=== PATIENT | male | born 1945 | race Caucasian/White ===

== ENCOUNTER 2019-03-01 06:23 | Day surgery (SDC) | payer OTHER, BC ==
[~2019-03-01] VITALS: Ht 157.5 cm; Wt 68.5 kg
[2019-03-01] MEDS ORDERED: ASPI-1718 PO (07:45)
[2019-03-01] MEDS ORDERED: NITR0.4T1 SL (07:45)
[2019-03-01] MEDS ORDERED: LOSA25TA43 PO (07:45)
[2019-03-01] MEDS ORDERED: TOLT2TAB7 PO (07:45)
[2019-03-01] MEDS ORDERED: PANT40EC PO (07:45)
[2019-03-01] MEDS ORDERED: ATRO1TAB PO (07:45)
[2019-03-01] MEDS ORDERED: ATOR40TA PO (07:45)
[2019-03-01] MEDS ORDERED: LEVO5TAB12 PO (07:45)
[2019-03-01] MEDS ORDERED: [UNRECOGNIZED DRUG - CODE] NS (07:45)
[2019-03-01] MEDS ORDERED: CLOB0.0525 TP (07:45)
[2019-03-01] MEDS ORDERED: CITA10TA11 PO (07:45)
[2019-03-01] MEDS ORDERED: fentaNYL 0.05 MG/ML VIAL ONE (08:31)
[2019-03-01] MEDS ORDERED: MIDAZOLAM 2 MG/2 ML VIAL ONE (08:32)
[2019-03-01] MEDS ORDERED: LIDOCAINE 2% 100 MG/5 ML UJET TP ONE (08:32)
== END 2019-03-01 10:00 | disposition home or self-care (01) ==
LOC: MDS 06:23 → MMU 06:53 → MDS 10:00
PROVIDERS: ATTEND Internal Medicine Gastroenterology
DX: K31.7 Polyp of stomach and duodenum (principal); K31.89 Other diseases of stomach and duodenum; K21.9 Gastro-esophageal reflux disease without esophagitis; I10 Essential (primary) hypertension; M19.90 Unspecified osteoarthritis, unspecified site; E66.3 Overweight; Z68.27 Body mass index [BMI] 27.0-27.9, adult; Z79.899 Other long term (current) drug therapy; Z79.82 Long term (current) use of aspirin; Z72.89 Other problems related to lifestyle; Z86.010 Personal history of colon polyps; Z88.5 Allergy status to narcotic agent; Z88.8 Allergy status to other drugs, medicaments and biological substances; Z85.46 Personal history of malignant neoplasm of prostate; Z98.890 Other specified postprocedural states; Z95.5 Presence of coronary angioplasty implant and graft; Z98.41 Cataract extraction status, right eye; Z98.42 Cataract extraction status, left eye
CPT/HCPCS: 36415; 43239; 86677; J2250; J3010